=== PATIENT | male | born 1970 | race Caucasian/White ===

== ENCOUNTER 2021-02-13 14:10 | Observation (INO) | payer BC ==
[~2021-02-13] VITALS: Ht 172.7 cm; Wt 86.0 kg
[2021-02-13 15:38] LABS: HEMOGLOBIN 15.8 gm/dl (14.0-17.5); RED BLOOD COUNT 4.75 M/UL (4.20-5.50)
[2021-02-13 15:53] LABS: BUN/CREATININE RATIO 13 (0-10)
[2021-02-13] MEDS ORDERED: ATORVASTATIN CA10 MG PO (19:10)
[2021-02-13] MEDS ORDERED: NITROGLYCERIN0.4 MG SL (19:10)
[2021-02-13] MEDS ORDERED: AMLODIPINE-BEN1 EAC1 PO (19:10)
[2021-02-13] MEDS ORDERED: OMEPRAZOLE20 MG PO (19:11)
[2021-02-13] MEDS ORDERED: ZYLOPRIM 300 M300 MG PO (19:11)
[2021-02-13] MEDS ORDERED: METFORMIN HCL1000 MG PO (19:11)
[2021-02-13] MEDS ORDERED: ASPIRIN EC81 MG PO (19:21)
[2021-02-14 03:04] LABS: HEMOGLOBIN 14.8 gm/dl (14.0-17.5); RED BLOOD COUNT 4.59 M/UL (4.20-5.50); WHITE BLOOD COUNT 7.6 K/UL (4.5-11.0)
[2021-02-14 03:47] LABS: BUN/CREATININE RATIO 12 (0-10)
[2021-02-14] MEDS ORDERED: CARVEDILOL3.125 MG PO (13:27)
[2021-02-14] MEDS ORDERED: ISOSORBIDE MONO30 MG PO (13:27)
== END 2021-02-14 15:26 | disposition home or self-care (01) ==
LOC: ER1 14:10 → MED SURG 4 17:43 → CDU 17:43 → MED SURG 4 18:45
PROVIDERS: Physician Assistant Medical; ADMIT Internal Medicine
DX: I20.0 Unstable angina (principal); I10 Essential (primary) hypertension; E78.5 Hyperlipidemia, unspecified; E11.9 Type 2 diabetes mellitus without complications; F17.220 Nicotine dependence, chewing tobacco, uncomplicated; K21.9 Gastro-esophageal reflux disease without esophagitis; M10.9 Gout, unspecified; F41.9 Anxiety disorder, unspecified; Z20.822 Contact with and (suspected) exposure to COVID-19; Z95.5 Presence of coronary angioplasty implant and graft; Z79.84 Long term (current) use of oral hypoglycemic drugs; Z79.82 Long term (current) use of aspirin; Z79.899 Other long term (current) drug therapy
CPT/HCPCS: ECHO; 36415; 71045; 78452; 80048; 80053; 80061; 82550; 82553; 83735; 83874; 84484; 85025; 85027; 93005; 93017; 93306; 99285; A9502; G0378; U0002